=== PATIENT | female | born 1955 | race Caucasian/White ===

== ENCOUNTER 2016-12-27 09:30 | Emergency (ER) | payer OTHER ==
[~2016-12-27] VITALS: Ht 157.5 cm; Wt 84.3 kg
[2016-12-27 10:01] LABS: HEMATOCRIT 40.7 % (36.0-46.0); MCH 30.5 PG (29.0-34.0); MCHC 33.2 G/DL (30.0-36.0); MCV 92.1 FL (83-99); MEAN PLAT.VOLUME 10.5 uM^3 (9.5-12.4); PLATELET COUNT 294 K/uL (156-360); RBC DIS.WIDTH-CV 14.2 % (11.8-14.6); RBC DIS.WIDTH-SD 48.1 % (39-53); RED BLOOD COUNT 4.42 M/uL (3.80-5.20); WHITE BLOOD COUNT 13.3 K/uL (4.1-10.2)
[2016-12-27 10:12] LABS: CHLORIDE 97 mEq/L (99-109); POTASSIUM 5.1 mEq/L (3.7-5.4); SODIUM 138 mEq/L (136-147)
[2016-12-27 10:13] LABS: GLUCOSE 217 mg/dL (70-99)
[2016-12-27 10:15] LABS: ANION GAP 13 MEQ/L (2-14)
[2016-12-27 10:18] LABS: UREA NITROGEN (BUN) 10 mg/dL (9-23)
[2016-12-27 10:24] LABS: GFR ESTIMATE (CALCULATED) > 59 mL/min/
[2016-12-27] MEDS ORDERED: LISINOPRIL-HCT1 EACH PO (11:17)
[2016-12-27] MEDS ORDERED: ZOLOFT100 MG PO (11:18)
[2016-12-27] MEDS ORDERED: ALBUTEROL2.5 MG/3 M IH (11:18)
[2016-12-27] MEDS ORDERED: ZITHROMAX Z-PA250 MG PO (14:20)
[2016-12-27] MEDS ORDERED: PREDNISONE50 MG PO (14:20)
[2016-12-27 14:30] VITALS: BP 147/58
== END 2016-12-27 14:40 | disposition home or self-care (01) ==
LOC: EME 09:30
DX: J44.1 Chronic obstructive pulmonary disease with (acute) exacerbation (principal); J44.0 Chronic obstructive pulmonary disease with (acute) lower respiratory infection; J20.9 Acute bronchitis, unspecified; Z87.891 Personal history of nicotine dependence; Z98.84 Bariatric surgery status
CPT/HCPCS: 71020; 80048; 85027; 93005; 94640; 94640 76; 99281; 99285; J1885; J2930